=== PATIENT | female | born 2005 | race Caucasian/White ===

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

== ENCOUNTER 2024-04-02 20:06 | Emergency (ER) | payer OTHER ==
[~2024-04-02] VITALS: Ht 160 cm; Wt 62.7 kg
[2024-04-02] MEDS ORDERED: PANTOPRAZOLE SO40 MG PO (20:12)
[2024-04-02] MEDS ORDERED: Famotidine 20 MG/2 ML VIAL IV ONE (20:30)
[2024-04-02] MEDS ORDERED: EPINEPHrine 0.3 MG/0.3 ML Auto Injector IM ONE (20:30)
[2024-04-02] MEDS ORDERED: NS 1,000 ML IV SCH (20:30)
[2024-04-02] MEDS ORDERED: methylPREDNISolone Sod Succ 125 MG/2 ML VIAL IV ONE (20:30)
[2024-04-02] MEDS ORDERED: diphenhydrAMINE 50 MG/ML 1 ML VIAL IV ONE (20:30)
[2024-04-02] MEDS ORDERED: EPINEPHrine 1 MG/ML (1:1000) 1 ML AMP IM ONE (21:00)
[2024-04-02] MEDS ORDERED: EPINEPHRIN0.3 MG/0.3 IJ (23:24)
[2024-04-02] MEDS ORDERED: PREDNISONE10 MG PO (23:24)
[2024-04-03 00:44] VITALS: BP 119/79
== END 2024-04-03 00:44 | disposition home or self-care (01) ==
LOC: ED 20:06
DX: T78.40XA Allergy, unspecified, initial encounter (principal); X58.XXXA Exposure to other specified factors, initial encounter
CPT/HCPCS: J0171; J1200; J2919; J3490; J7030